=== PATIENT | female | born 1970 | race African-American/Black ===

== ENCOUNTER 2025-10-04 15:02 | Inpatient (IN) ==
[2025-10-04] MEDS ORDERED: KETAMINE HCL ONE ×5 (16:29)
[2025-10-04] MEDS ORDERED: XYLOCAINE 2 % (PLAIN) ONE ×2 (16:29)
[2025-10-04] MEDS ORDERED: ULTANE GAS IN ONE ×3 (16:29)
[2025-10-04] MEDS ORDERED: PRECEDEX INJ VIAL ONE ×4 (16:29)
[2025-10-04] MEDS ORDERED: NovoLIN R (or HumuLIN R) SUBCUT PRN (19:30)
[2025-10-04] MEDS: SNACK - Diabetic Appropriate PO SCH (20:52)
[2025-10-04] MEDS: PROTONIX INJ 40 MG VIAL IVP ONE (21:26)
[2025-10-04] MEDS ORDERED: ZOFRAN INJ 4 MG VIAL IVP PRN (22:13)
[2025-10-04] MEDS ORDERED: VENTOLIN or PROAIR HFA IN SCH (22:15)
[2025-10-04] MEDS: PERCOCET TAB 5/325 MG PO PRN (23:03)
[2025-10-04 23:05] LABS: MEAN PLATELET VOLUME 8.9 fL (7.4-11.0); RED CELL DISTRIBUTION WIDTH 17.2 % (11.6-16.5)
[2025-10-04] MEDS: LR 1,000 ML IV 1,000 ML IV SCH (23:07)
[2025-10-04 23:11] LABS: COR CA(FOR HYPOALB) 9.7 mg/dL (8.5-10.1); COR NA(FOR HYPERGLY) 140.0 mmol/L (136-145); CREATININE 1.28 mg/dL (0.55-1.02); eGFR NON BLACK RACES 46.0 (>60)
--- NOTE | 2025-10-04 23:40 | EKG ---
Test Reason : surgery Blood Pressure : */* mmHG Vent. Rate : 95 BPM Atrial Rate : 95 BPM P-R Int : 156 ms QRS Dur : 86 ms QT Int : 348 ms P-R-T Axes : 65 48 55 degrees QTc Int : 437 ms Normal sinus rhythm Normal ECG No previous ECGs available Confirmed by Alejandro Gee MD ([id number]) on 10/05/2025 7:25:30 AM Referred By: Confirmed By: Alejandro Gee MD
[2025-10-05] MEDS: NovoLIN R (or HumuLIN R) SUBCUT PRN (00:33)
[2025-10-05] MEDS: DILAUDID INJ IVP PRN (00:52)
[2025-10-05] MEDS: HIBICLENS WASH EXT ONE (03:59)
--- NOTE | 2025-10-05 04:58 | RAD ---
PROCEDURE: Chest X-ray 1 View. HISTORY: central line placement; central line placement . TECHNIQUE: AP portable view. COMPARISON: None . TECHNICAL QUALITY: Satisfactory. FINDINGS: Left subclavian central venous line tip projected over the mid superior vena cava 5 cm from the superior cavoatrial junction. Normal-sized heart. Mediastinum and hilar regions show no masses or lymphadenopathy. Normal central vascularity. No pulmonary consolidation, masses, pleural fluid, or pneumothorax. Elevated left hemidiaphragm. No acute bony abnormality. IMPRESSION: 1. Left subclavian central venous line tip mid superior vena cava with the tip 5 cm from the superior cavoatrial junction. 2. No pneumothorax. 3. Elevated left hemidiaphragm. 4. No other evidence of active disease. THIS IS AN ELECTRONICALLY VERIFIED FINAL REPORT 10/05/2025 4:54 AM - Electronically signed by Sanchez Paulino MD
[2025-10-05 05:05] LABS: MEAN PLATELET VOLUME 8.9 fL (7.4-11.0); RED CELL DISTRIBUTION WIDTH 17.4 % (11.6-16.5)
[2025-10-05 05:13] LABS: COR CA(FOR HYPOALB) 9.6 mg/dL (8.5-10.1); COR NA(FOR HYPERGLY) 140 mmol/L (136-145); CREATININE 1.11 mg/dL (0.55-1.02); eGFR NON BLACK RACES 54 (>60)
[2025-10-05] MEDS: PROVENTIL NEB TX 0.083% 2.5MG/ 3ML NEB SCH (06:02)
[2025-10-05] MEDS: HIBICLENS WASH ONE (07:05)
[2025-10-05] MEDS: PROTONIX TAB 40 MG PO SCH ×2 (07:43→08:37)
[2025-10-05] MEDS: CONSULT PHARMACY - POTASSIUM & MAGNESIUM XX SCH (07:43)
[2025-10-05 08:33] LABS: BLOOD/HEMOGLOBIN,URINE NEGATIVE (NEGATIVE); LEUKOCYTE ESTERASE ,URINE 2+ (NEGATIVE); NITRITES,URINE POSITIVE (NEGATIVE)
[2025-10-05] MEDS: COREG TAB 25 MG PO SCH (08:37)
[2025-10-05] MEDS: ASPIRIN EC 81 MG PO SCH (08:38)
[2025-10-05] MEDS: LIPITOR TAB 80 MG PO SCH (08:38)
[2025-10-05 08:39] LABS: APPEARANCE,URINE HAZY (CLEAR)
[2025-10-05] MEDS: ZOLOFT PO SCH (08:39)
[2025-10-05] MEDS: NEURONTIN CAP 100 MG PO SCH (08:39)
[2025-10-05] MEDS: MAG-OX TAB PO SCH (08:39)
[2025-10-05 08:40] LABS: SQUAMOUS EPITHELIAL CELL,UR NEGATIVE /HPF (NEGATIVE)
[2025-10-05] MEDS: NS 500 ML IV 500 ML IV ONE ×2 (08:41→11:49)
--- NOTE | 2025-10-05 08:42 | DR.H&P ---
H&P History & Physical for Day of: H&P Date: 10/04/25 Chief Complaint Chief Complaint: Rest pain both lower extremities with gangrenous changes of both great toesand both small toes History of Present Illness History of Present Illness: This is a 54-year-old female with right hemispheric stroke and left hemiparesis who had changes of ischemia toes of both feet when I saw her originally in July. She is had CT angiogram showing bilateral common iliac artery stenosis noted nto be severe, occluded right tibioperoneal trunk with reconstitution single-vessel runoff via the posterior tibial artery to the right foot and severe left femoral-popliteal disease with patent posterior tibial artery going to the foot left side. We have had trouble getting her approved with her insurance carrier. They finally approved her when she returned to the the office for regular follow-up with worsening of the ischemia and gangrenous changes of the great toe and fifth toe of both feet. Still has ability to stand and pivot and help her caregivers dress her and interact with her. 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 Past Medical History Past Medical History: CVA, Diabetes, GERD and Hypertension Past Surgical History Surgical History: Cholecystectomy and Other Family History Family Medical History: Diabetes Mellitus and Hypertension Social History Does patient currently use any type of tobacco product: No Have you used tobacco products in the last 12 months: No Type of Tobacco Use: Cigarettes How many years tobacco product used: 20 Alcohol Use: None Drug Use: None Medications Home Medications: aspirin 81 mg daily Atorvastatin 80 mg Coreg 25 mg twice daily Plavix 75 mg daily Vitamin D 50,000 units by mouth weekly Famotidine 40 mg daily Ferrous sulfate 325 mg daily Gabapentin 100 mg twice daily Lantus insulin 12 units subcu twice daily Regular insulin as a sliding scale Ipratropium albuterol inhalation every 4 hours Losartan 100 mg daily Percocet 5 mg tablet 1 p.o. every 6 hours. Pain Phenergan as needed Sertraline 50 mg daily Allergies Allergies Allergy/AdvReac Type Severity Reaction Status Date / Time amoxicillin Allergy Verified 10/05/25 00:10 codeine Allergy Verified 10/04/25 19:14 nicardipine Allergy Verified 10/04/25 19:14 ondansetron (From Zofran) Allergy RASH Verified 10/05/25 00:10 Penicillins Allergy Verified 10/04/25 19:14 Labs 10/05/25 04:25 10/05/25 04:25 Review of Systems Constitutional: See HPI Eyes: No Symptoms Reported ENT: No Symptoms Reported Respiratory: No Symptoms Reported Cardiovascular: No Symptoms Reported Gastrointestinal: See HPI (severe reflux ) Genitourinary: Dysuria Musculoskeletal: Other (Left hemiparesis) Skin: No Symptoms Reported Neurological: Other (Left hemiparesis) Physical Exam Vital Signs: Vital Signs Temperature 100.0 F Pulse Rate 92 Pulse Rate 94 Respiratory Rate 18 Blood Pressure 132/66 O2 Sat by Pulse Oximetry 100 O2 Sat by Pulse Oximetry 100 Oriented: Time, Person, Place and Other (Talked with family on her phone all the time) Eyes: Normal Ear: Normal Nose: Normal Throat: Normal Respiratory: Clear Throughout Cardiovascular: Normal and Other (Weakly palpable femoral pulses bilaterally. Absent pulses both ankles. Gangrenous changes of both great toes in both small toes ) : Normal Auscultation: Bowel Sounds: Normal Palpation: Normal Tenderness: Normal Skin: Wound (Gangrenous changes both great toes with open wounds and both small toes open wounds. Questionable ischemia of all the other toes of both feet) Musculoskeletal: Left (Left hemiparesis with contracted left arm and paresis of the left leg) Psychiatric: Depression Mood Description: Apathetic Affect: Depressed and Quiet Speech Pattern: Delayed Assessment/Plan (1) Atherosclerosis of [place] arteries of extremities with rest pain, left leg: Status: Acute Plan: Patient admitted in preop for arterial intervention of the left leg. Most likely will require left transmetatarsal amputation. Will consult podiatry for that (2) Atherosclerosis of [place] arteries of extremities with rest pain, right leg: Status: Acute Plan: After the left leg is done we will need arterial imaging of the right leg and probable right transmetatarsal amputation as well. Will consult podiatry (3) Type 2 diabetes mellitus without complications: Status: Acute Plan: Sliding scale insulin for (4) Essential (primary) hypertension: Status: Acute Plan: Home medications (5) Arterial ischemic stroke, ICA (internal carotid artery), right, chroni: Status: Acute Plan: Stable Home medications (6) Dysphagia following cerebral infarction: Status: Acute Plan: Stable may require EGD in the future (7) Hyperlipidemia, unspecified: Status: Acute Plan: Home medications (8) Stricture of artery: Status: Acute Plan: The left arm is the one that has contracture. Will see if anything is to be done to the subclavian artery stenosis in the future. Review H&P Reviewed: Yes Patient was examined?: Yes
[2025-10-05] MEDS: COZAAR PO SCH (08:51)
--- NOTE | 2025-10-05 10:16 | DR.OPNOTE ---
OP NOTE Pre-Op Diagnosis: Lack of IV access Post-Op Diagnosis: same Procedure Date Date Of Procedure: 10/04/25 Procedure: PROCEDURE: Need for central venous access NARRATIVE: The patient was placed in the Trendelenburg position and the entire left chest prepped and draped in sterile fashion as was the left neck. The skin overlying the left clavicle infiltrated with 1% Xylocaine and a 16-gauge needle used to puncture left subclavian vein with aspiration of blood and placement of a 0.035 inch wire. Incision made over the wire with a #11 knife blade and dilator placed over the guidewire into the left subclavian vein. Dilator removed and the triple-lumen catheter placed over the wire into the vein. Wire removed. All ports aspirated of blood and flushed with heparinized saline. The catheter then secured to the skin with interrupted silk sutures. Post- procedure chest x-ray showed good placement with no pneumothorax. Patient tolerated this well. Type of Anesthesia: Local (1% Xylocaine) Findings: as above Type of Fluids Used:: Lactated Ringers EBL: minimal Complications:: none , chest x-ray showed good placement with no pneumothorax of the central venous cath Disposition/Condition: Pt. tolerated procedure without difficulty.
[2025-10-05] MEDS: VERSED ONE (10:19)
[2025-10-05] MEDS: HEPARIN SODIUM INJ 5000 UNITS ONE ×2 (10:22→12:29)
[2025-10-05] MEDS: FENTANYL VIAL INJ 100 mcg ONE (10:23)
[2025-10-05] MEDS: DIPRIVAN VIAL 20 ML ONE ×4 (10:24→12:57)
[2025-10-05] MEDS: OFIRMEV IV 1000 MG VIAL 1,000 MG/100 ML VIAL IV ONE (10:24)
[2025-10-05] MEDS: ZOFRAN INJ 4 MG VIAL ONE (10:24)
[2025-10-05] MEDS: PEPCID 20 MG VIAL ONE (10:49)
[2025-10-05] MEDS: NS IV PRN (10:50)
[2025-10-05] MEDS: MARCAINE 0.5% ONE ×2 (10:53→11:27)
[2025-10-05] MEDS: PEPCID 20 MG VIAL IVP PRN (10:54)
[2025-10-05] MEDS: NS 100 ML IV 100 ML ONE (10:58)
[2025-10-05] MEDS: ANCEF VIAL 1 GRAM ONE (10:58)
[2025-10-05] MEDS: NS 1,000 ML IV 1,000 ML ONE (10:59)
[2025-10-05] MEDS: ANCEF VIAL 1 GRAM IV PRN (11:05)
[2025-10-05] MEDS: XYLOCAINE 2 % (PLAIN) IVP PRN (11:12)
[2025-10-05] MEDS: PRECEDEX INJ VIAL IVP PRN (11:13)
[2025-10-05] MEDS: KETAMINE HCL IVP PRN (11:13)
[2025-10-05] MEDS: DECADRON INJ ONE (11:15)
[2025-10-05] MEDS: FENTANYL VIAL INJ 100 mcg IVP PRN (11:15)
[2025-10-05] MEDS: VERSED IVP PRN (11:18)
[2025-10-05] MEDS: DECADRON INJ IVP PRN (11:23)
[2025-10-05] MEDS: VISIPAQUE 50 ML ONE (11:27)
[2025-10-05] MEDS: VISIPAQUE 100 ML ONE (11:27)
[2025-10-05] MEDS: HEPARIN 1,000 UNIT/500 ML-NS 3,000 UNIT/1,500 ML IV.SOLN ONE (11:27)
[2025-10-05] MEDS: OFIRMEV IV 1000 MG VIAL 1,000 MG/100 ML VIAL IV PRN (11:35)
[2025-10-05] MEDS: NORMODYNE INJ 20 MG VIAL ONE (11:52)
--- NOTE | 2025-10-05 11:59 | DR.CONSULT ---
CONSULT Consultation for Day of: Date: 10/05/25 Chief Complaint Chief Complaint: rest pain bilateral lower extremities wit gangrenous changes of several digits of both feet Allergies Allergies Allergy/AdvReac Type Severity Reaction Status Date / Time amoxicillin Allergy Verified 10/05/25 00:10 codeine Allergy Verified 10/04/25 19:14 nicardipine Allergy Verified 10/04/25 19:14 ondansetron (From Zofran) Allergy RASH Verified 10/05/25 00:10 Penicillins Allergy Verified 10/04/25 19:14 History of Present Illness History of Present Illness: Patient is a 54 y/o female with a PMHx CVA, Diabetes, GERD and HTN. Patient is a known patient to vascular surgeon Dr. Boo. He contacted our service because patient is undergoing b/l intervention after CT angiogram showing bilateral common iliac artery stenosis noted to be severe, occluded right tibioperoneal trunk with reconstitution single-vessel runoff via the posterior tibial artery to the right foot and severe left femoral-popliteal disease with patent posterior tibial artery going to the foot left side. Patient also has a history of right hemispheric stroke and left hemiparesis who had changes of ischemia toes of both feet when she was seen by Dr. Boo originally in July. According to Dr. Boo's note, patient had trouble obtaining insurance authorization and once approved she appeared for a follow up with worsening of the ischemia and gangrenous changes of the great toe and fifth toe of both feet. Still has ability to stand and pivot and help her caregivers dress her and interact with her. 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 Patient does have history of smoking. Past Medical History Past Medical History: CVA, Diabetes, GERD and Hypertension Past Surgical History Surgical History: Cholecystectomy and Other Family History Family Medical History: Diabetes Mellitus and Hypertension Social History Does patient currently use any type of tobacco product: No Have you used tobacco products in the last 12 months: No Type of Tobacco Use: Cigarettes How many years tobacco product used: 20 Alcohol Use: None Drug Use: None Medications Home Medications: amoxicillin Allergy (Verified 10/05/25 00:10) codeine Allergy (Verified 10/04/25 19:14) nicardipine Allergy (Verified 10/04/25 19:14) ondansetron (From Zofran) Allergy (Verified 10/05/25 00:10) RASH Penicillins Allergy (Verified 10/04/25 19:14) CONTINUE taking the following medications aluminum-mag hydroxide-simethicone 400 mg-400 mg-40 mg/5 mL oral susp (Nery- Lanta) 30 ml PO Q8H PRN 10/04/25 [History] aspirin 81 mg chewable tablet 81 mg PO QDAY 10/04/25 [History] atorvastatin 80 mg tablet 80 mg PO DAILY 10/04/25 [History] carvedilol 25 mg tablet (Coreg) 25 mg PO BID 10/04/25 [History] clopidogrel 75 mg tablet (Plavix) 75 mg PO QDAY 10/04/25 [History] ergocalciferol (vitamin D2) 50,000 unit tablet 50,000 unit PO WEEKLY 10/04/25 [History] famotidine 40 mg tablet 40 mg PO DAILY 10/04/25 [History] ferrous sulfate 325 mg (65 mg iron) tablet,delayed release 325 mg PO DAILY 10/04/25 [History] gabapentin 100 mg capsule 100 mg PO BID 10/04/25 [History] insulin glargine 100 unit/mL (3 mL) subcutaneous pen (Lantus Solostar U-100 Insulin) 12 unit subcut BID 10/04/25 [History] insulin regular human 100 unit/mL injection solution (Humulin R Regular U-100 Insulin) See Rx Instructions .Route .COMPLEX 10/04/25 [History] losartan 100 mg tablet 100 mg PO DAILY 10/04/25 [History] oxycodone-acetaminophen 5 mg-325 mg tablet 1 tab PO Q6H PRN 10/04/25 [History] pantoprazole 40 mg granules delayed-release for susp in packet 40 mg PO DAILY 10/04/25 [History] promethazine 25 mg tablet 25 mg PO Q8H PRN 10/04/25 [History] sennosides 8.6 mg-docusate sodium 50 mg tablet 1 tab PO BID PRN 10/04/25 [History] sertraline 50 mg tablet 50 mg PO DAILY 10/04/25 [History] ipratropium 0.5 mg-albuterol 3 mg (2.5 mg base)/3 mL nebulization soln 3 ml inhalation Q4H PRN rhonchi/adventitious lung sounds 11/25/25 [History] Physical Exam Vital Signs: Vital Signs Temperature 98.3 F Temperature 98.7 F Temperature 98.5 F Pulse Rate 89 Pulse Rate 90 Pulse Rate 92 Pulse Rate 90 Pulse Rate 95 Pulse Rate 94 Pulse Rate 91 Pulse Rate 91 Pulse Rate 92 Pulse Rate 93 Pulse Rate 96 Pulse Rate 94 Pulse Rate 92 Pulse Rate 96 Pulse Rate 88 Pulse Rate 83 Respiratory Rate 16 Respiratory Rate 16 Respiratory Rate 18 Respiratory Rate 18 Blood Pressure 131/63 Blood Pressure 123/68 Blood Pressure 126/60 Blood Pressure 139/65 Blood Pressure 104/58 O2 Sat by Pulse Oximetry 100 O2 Sat by Pulse Oximetry 100 O2 Sat by Pulse Oximetry 97 O2 Sat by Pulse Oximetry 100 O2 Sat by Pulse Oximetry 100 O2 Sat by Pulse Oximetry 100 O2 Sat by Pulse Oximetry 100 O2 Sat by Pulse Oximetry 97 O2 Sat by Pulse Oximetry 98 O2 Sat by Pulse Oximetry 99 O2 Sat by Pulse Oximetry 99 O2 Sat by Pulse Oximetry 100 O2 Sat by Pulse Oximetry 99 O2 Sat by Pulse Oximetry 98 O2 Sat by Pulse Oximetry 100 O2 Sat by Pulse Oximetry 99 DERM: To the right foot: Significant ischemic changes appreciated to the digits 1, 3 and 5 and dusky changes appreciated to 2 and 4. Advanced ischemic changes are appreciated to the digits 1, 3 and 5 in comparison to 2 and 4. To the ischemic digits, bogginess and malodor are noted with purulent drainage. Periwound tisue with erythema, maceration and devitalized tissue is ntoed. Skin is cool to touch, dry and think with no active bleeding. There is a deep full thickness ulceration appreciated to the plantar midfoot that measures 3.2 x 2.8 x 0.4 cm with exposed muscle. To the left foot: Significant ischemic changes appreciated to the digits 1, 3 and 5 and dusky changes appreciated to 2 and 4. Advanced ischemic changes are appreciated to the digits 1, 3 and 5 in comparison to 2 and 4. To the ischemic digits, bogginess and malodor are noted with purulent drainage. Periwound tisue with erythema, maceration and devitalized tissue is ntoed. Skin is cool to touch, dry and think with no active bleeding. VASCULAR: Dorsalis pedis and posterior tibial pulses are non palpable bilateral. CFT is absent bilaterally. Temperature gradient is noted to be cool from mid leg distally. No edema is appreciated. MSK: TO the right: Full-thickness ulcer with exposed muscle at plantar midfoot; underlying soft tissue integrity compromised. No gross deformity aside from collapse of soft tissue envelope around ulceration. Pain on palpation diffusely. To the left: pain on palpation to digits and forefoot due to ischemia. Ambulation: Limited; patient avoids weight bearing due to pain, but has been able to pivot and stand outpatient NEURO: Light touch sensation diminished to digits bilaterally; protective sensation unable to be fully assessed secondary to ischemia and pain. Gross motor function preserved proximally, limited distally due to pain and tissue compromise. Plan (1) Atherosclerosis of [place] arteries of extremities with rest pain, left leg: Status: Acute (2) Atherosclerosis of [place] arteries of extremities with rest pain, right leg: Status: Acute (3) Type 2 diabetes mellitus without complications: Status: Acute (4) Essential (primary) hypertension: Status: Acute (5) Arterial ischemic stroke, ICA (internal carotid artery), right, chroni: Status: Acute (6) Dysphagia following cerebral infarction: Status: Acute (7) Hyperlipidemia, unspecified: Status: Acute (8) Stricture of artery: Status: Acute (9) Gangrene of both feet: Status: Acute Narrative Support Text: - Ordered xrays to evaluate bone and MRI for right foot for nonhealing wound to the midfoot to rule out osteomyelitis and for surgical planning - Plan to perform bilateral TMAs on patient but on separate days- patient will also require a TTT osteotomy after TMAs pending vascular surgery intervention - Will obtain cultures in the OR or antibiotic planning as needed - Patient will be NWB after procedures and will likely need to go to a facility, please plan with case management for discharge - Will order labs for inflammatory markers - Will order A1c for patient - Will await imaging for further recommendations - Will await vascular intervention for any changes in surgical plan - I did discuss this with patient and her aunt who was on the phone- both stated they understood - Betadine and dry sterile dressing can be applied to bilateral feet daily Please contact me with any questions! Dr. Michell Montenegro
[2025-10-05] MEDS: NORMODYNE INJ 20 MG VIAL IVP PRN (12:16)
[2025-10-05] MEDS: HEPARIN SODIUM INJ 5000 UNITS IVP PRN (12:29)
[2025-10-05] MEDS: PROTAMINE SULFATE 50 MG VIAL ONE (13:11)
[2025-10-05] MEDS: PROTAMINE SULFATE 50 MG VIAL IVP PRN (13:13)
--- NOTE | 2025-10-05 13:37 | OR.IMMED ---
IMMEDIATE POST-OP NOTE Immediate Post-Op Note Date of surgery/procedure: 10/05/25 Pre-Op Diagnosis: Critical ischemia of the left leg with tissue loss of the toes Post-Op Diagnosis: Same, see findings Procedure: Aortogram, arteriogram left lower extremity, atherectomy and balloon angioplasty of the left posterior tibial artery, atherectomy and angioplasty of the left anterior tibial artery, intravascular ultrasound of left superficial femoral artery and popliteal artery, balloon angioplasty of the left common femoral artery, stenting of the proximal left common iliac artery Description of Procedure: dictated Surgeon/Pants Closer: Edwardo Boo MD, FACS Findings: Occluded peroneal artery. Occluded proximal takeoff of both the anterior tibial and posterior tibial arteries with diffuse disease of both distal patent left superficial femoral and popliteal artery, near complete occlusion of the takeoff of the left superficial femoral artery, severe stenosis greater than 70% of the left common iliac artery Estimated Blood Loss: 150 cc Complications: None Progress Notes: Patient returned to the ICU. Will give her a diet and plan intervention of the right leg tomorrow. I discussed this with her family by phone.
[2025-10-05] MEDS ORDERED: MAG-OX TAB PO SCH (17:00)
[2025-10-05] MEDS ORDERED: CONSULT PHARMACY - POTASSIUM & MAGNESIUM XX SCH (17:00)
[2025-10-05] MEDS: MAGNESIUM SULFATE 1 GRAM/100 mL PREMIX 1 G/100 ML BAG IV SCH (17:45)
[2025-10-05] MEDS ORDERED: PROTONIX TAB 40 MG PO SCH (20:00)
[2025-10-05] MEDS ORDERED: SNACK - Diabetic Appropriate PO SCH (20:00)
[2025-10-05] MEDS: CIPRO TAB 500 MG PO SCH (20:52)
[2025-10-05] MEDS: DULCOLAX TAB EC 5 MG PO SCH (20:52)
--- NOTE | 2025-10-06 00:04 | DR.OPNOTE ---
OP NOTE Pre-Op Diagnosis: Critical ischemia left leg with tissue loss of left great toe and small toe Post-Op Diagnosis: Same, see findings below Procedure Date Date Of Procedure: 10/05/25 Procedure: PROCEDURE: Diagnostic aortogram, diagnostic arteriogram left leg, atherectomy and balloon angioplasty of the left posterior tibial artery, atherectomy and balloon angioplasty left anterior tibial artery, intravascular ultrasound of the left superficial femoral artery and popliteal artery and left iliac artery, balloon angioplasty of the left common femoral artery, stenting of the proximal left common iliac artery NARRATIVE: The patient was taken to the operative suite and placed in the supine position. The right groin and entire left leg were prepped and draped in sterile fashion. Patient was given intravenous sedation supervised by myself. Timeout for the procedure obtained. Ultrasound used to identify the femoral artery in the right groin and the skin overlying it infiltrated with 0.5% Marcaine. Ultrasound used to guide puncture of the right femoral artery and a 0.012 inch guidewire placed. Incision made over the guidewire at the skin edge with a #11 knife blade and the micro sheath placed over the guidewire into the femoral artery. Small wire exchanged for a 0.035 inch Advantage Glidewire and the micro sheath exchanged for a 5 [place] vascular sheath. Patient given 5000 units of intravenous heparin. Omni catheter placed over the guidewire into the aorta and power injector used to perform aortogram showing small aorta with high bifurcation and severe stenosis both common iliac arteries . The Omni catheter was then used to direct the guidewire down the left common iliac artery to the distal left external iliac artery. The Omni catheter exchanged for a [place] catheter and sequential arteriograms performed of the left leg showing patenr left superficial femoral artery ,patent left popliteal artery, patent left tibial peroneal trunk, occluded left peroneal artery , occluded proximal left posterior tibial artery with reconstitution distally, occluded proximal left anterior tibial artery with reconstitutJon distally .The [place] catheter removed and over the guidewire the 5 [place]zeri sheath was exchanged for a 7 Azeri Catpult Sheath which was placed over the bifurcation down the left side to the left external iliac artery using a 4mm ballon to help get across the high bifurcation by inflating and deflating the baloon and advancing the Catapult sheath . One[place]ama catheter and the 0.035 guidewire used to traverse the arteries of the left leg ultimately ending in left posterior tibial artery . This was selective catherization. Onekama catheter used to exchanged 0.035 inch wire for a 0.014 inch Thruway wire,. Over this wire we placed the jetstream 1.6 mm atherectomy device and performed atherectomy of the proximal left posterior tibial artery and then balloon dilated the entire left posterior tibial artery using a [employer] Pascual 2.5 mm x 220 mm balloon. This wire was completely backed up and the wire and Onekama catheter used to traverse the anterior tibial artery all the way to the ankle. Selective catheterization. Over this wire we placed the atherectomy device and performed atherectomy of the proximal anterior tibial artery then balloon dilated the entire left anterior tibial artery using the same Pascual 2.5 mm x 220 mm balloon. Post procedure arteriogram showed excellent result .This device removed and over the wire we placed the [place] intravascular ultrasound device and performed ultrasound of the entire left popliteal and superficial femoral arteries as CT angiogram has shown significant disease. There was no significant disease of the left popliteal or left superficial femoral arteries however there was significant disease at the takeoff of the superficial femoral artery where it exited the common femoral artery of approximatelly 70% by ultrasound. There was also approximately 70% stenosis of the proximal left common iliac artery at the bifurcation. Over the wire we placed a [employer] Burt 6 mm x 60 mm drug coated balloon across the takeoff of the superficial femoral artery and the junction of the left common femoral artery and balloon dilated this for 3 minutes. This removed and then we placed over the wire a [employer] [employer] 8 mm x 37 mm stent, balloon expandable and expanded it in the proximal left common iliac artery. Post procedure arteriogram showed excellent flow through both of these areas now. Wires and devices removed from the Catapult sheath. This sheath pulled back into the aorta and a 0.035 guidewire placed. Catapult sheath exchanged over the wire for a Angio-Seal device used to close the puncture of the right femoral artery. Patient taken to same-day surgery in good condition. Type of Anesthesia: Local (0.5% Marcaine) Anesthesia Comment: Plus MAC Findings: Severe disease of the left common iliac artery, severe disease right common iliac artery, occluded left peroneal artery. Occluded proximal left posterior tibial artery, occluded proximal left anterior tibial artery, severe disease greater than 70% of the left common femoral artery, severe disease greater than 70% of the proximal left common iliac artery Type of Fluids Used:: Lactated Ringers Total Amount of Fluid Infused:: 650cc Urine output: 400cc EBL: 150cc Hardware: 80 mm x 37 mm [employer] [employer] iliac stent placed left common iliac artery Complications:: none Needle/Sponge Count:: correct Disposition/Condition: Pt. tolerated procedure without difficulty. Taken to CCU in stable condition.
[2025-10-06 05:32] LABS: MEAN PLATELET VOLUME 8.9 fL (7.4-11.0)
[2025-10-06 05:41] LABS: COR NA(FOR HYPERGLY) 137 mmol/L (136-145); CREATININE 1.00 mg/dL (0.55-1.02); eGFR NON BLACK RACES > 60 (>60)
[2025-10-06 06:29] LABS: RED CELL DISTRIBUTION WIDTH 16.4 % (11.6-16.5)
[2025-10-06 06:33] LABS: ERYTHROCYTE SEDIMENTATION RATE 53 MM/HOUR (0-20)
[2025-10-06 06:59] LABS: PLATELET MORPHOLOGY COMMENT NORMAL (NORMAL)
[2025-10-06] MEDS ORDERED: MULTIHANCE INJ VIAL ONE (10:34)
[2025-10-06] MEDS: OFIRMEV IV 1000 MG VIAL 1,000 MG/100 ML VIAL IV ONE (11:45)
[2025-10-06] MEDS: XYLOCAINE 2 % (PLAIN) ONE (11:45)
[2025-10-06] MEDS: DIPRIVAN VIAL 20 ML ONE ×2 (11:45→13:31)
[2025-10-06] MEDS: PRECEDEX INJ VIAL ONE (11:45)
[2025-10-06] MEDS: FENTANYL VIAL INJ 100 mcg ONE (11:46)
[2025-10-06] MEDS: HEPARIN SODIUM INJ 5000 UNITS ONE (11:46)
[2025-10-06] MEDS: VERSED ONE (11:46)
[2025-10-06] MEDS: PEPCID 20 MG VIAL ONE (12:07)
[2025-10-06] MEDS: MULTIHANCE INJ VIAL IVP NR (12:15)
[2025-10-06] MEDS: ANCEF VIAL 1 GRAM ONE (12:33)
[2025-10-06] MEDS: NS 1,000 ML IV 1,000 ML ONE (12:35)
[2025-10-06] MEDS: NS 100 ML IV 100 ML ONE (12:36)
[2025-10-06] MEDS: PEPCID 20 MG VIAL IVP PRN (12:38)
[2025-10-06] MEDS: NS 1,000 ML IV 400 ML IV PRN (12:38)
[2025-10-06] MEDS: ANCEF VIAL 1 GRAM IV PRN (12:40)
[2025-10-06] MEDS: KETAMINE HCL IVP PRN (12:46)
[2025-10-06] MEDS: XYLOCAINE 2 % (PLAIN) IVP PRN (12:46)
[2025-10-06] MEDS: DIPRIVAN VIAL 240 ML IVP PRN (12:46)
[2025-10-06] MEDS: PRECEDEX INJ VIAL IVP PRN (12:46)
[2025-10-06] MEDS: VISIPAQUE 100 ML ONE (13:03)
[2025-10-06] MEDS: HEPARIN 1,000 UNIT/500 ML-NS 3,000 UNIT/1,500 ML IV.SOLN ONE (13:03)
[2025-10-06] MEDS: VISIPAQUE 50 ML ONE (13:03)
[2025-10-06] MEDS: MARCAINE 0.5% ONE (13:03)
[2025-10-06] MEDS: NS 500 ML IV 500 ML IV ONE (13:03)
[2025-10-06] MEDS: VERSED IVP PRN (13:03)
[2025-10-06] MEDS: HEPARIN SODIUM INJ 5000 UNITS IVP PRN (13:04)
[2025-10-06] MEDS: OFIRMEV IV 1000 MG VIAL 1,000 MG/100 ML VIAL IV PRN (13:05)
[2025-10-06] MEDS: FENTANYL VIAL INJ 100 mcg IVP PRN (13:40)
--- NOTE | 2025-10-06 14:09 | OR.IMMED ---
IMMEDIATE POST-OP NOTE Immediate Post-Op Note Date of surgery/procedure: 10/06/25 Pre-Op Diagnosis: Critical ischemia right leg with tissue loss right great toe and small toe Post-Op Diagnosis: Same, see findings Procedure: Aortogram, arteriogram of right lower extremity, Surgeon/Wood Cutter: KERRY BECK MD FACS Findings: Deformed stent in the common right iliac artery but not obstructing. Multiple stents in right superficial artery with good runoff all the way to the trifurcation with occluded trifurcation vessels all 3 to the RIGHT FOOT . Estimated Blood Loss: 100CC Complications: NONE Progress Notes: Return to CCU. Patient for bilateral transmetatarsal amputation to be done sequentially next week. Continue IV antibiotics
[2025-10-06] MEDS: LOVENOX INJ 40 MG SYR SC SCH (15:34)
--- NOTE | 2025-10-06 22:54 | DR.OPNOTE ---
OP NOTE Pre-Op Diagnosis: Critical ischemia right leg with tissue loss to the right toes #1 &5 Post-Op Diagnosis: Same, see findings Procedure Date Date Of Procedure: 10/06/25 Procedure: PROCEDURE: Diagnostic aortogram, diagnostic arteriogram right leg, NARRATIVE: The patient was taken to the operative suite and placed in the supine position. The left groin and entire right leg were prepped and draped in sterile fashion. Patient was given intravenous sedation supervised by myself. Timeout for the procedure obtained. Ultrasound used to identify the femoral artery in the left groin and the skin overlying it infiltrated with 0.5% Marcaine. Ultrasound used to guide puncture of the left femoral artery and a 0.012 inch guidewire placed. Incision made over the guidewire at the skin edge with a #11 knife blade and the micro sheath placed over the guidewire into the femoral artery. Small wire exchanged for a 0.035 inch a Advantage Glidewire and the micro sheath exchanged for a 5 [place] vascular sheath. Patient given 5000 units of intravenous heparin. Omni catheter placed over the guidewire into the aorta and power injector used to perform aortogram showing patent aorta and patent left iliac artery placede yesterday and patent right common iliac artery with deformed stent which was not seen before. The Omni catheter or was placed at the takeoff of the right iliac artery and from here arteriograms. Of the right leg showing patent right superficial femoral artery and popliteal artery with stents in place. All trifurcation vessels are occluded with no significant reconstitution at the ankle. There is nothing that could be intervened upon to help in the situation. Wires and devices removed from the Catapult sheath. Catapult sheath exchanged over the wire for a Angio-Seal device used to close the puncture of the left femoral artery. Patient taken to same-day surgery in good condition. Type of Anesthesia: Local (0.5% Marcaine) Anesthesia Comment: Plus MAC Findings: Evidence of possible deformity of stent in the right common iliac artery which had not previously been seen noted on CT angiogram by radiologist not obstructing. Patent right superficial femoral artery with patent stents. Occlusion of all trifurcation vessels no significant reconstitution at the ankle Type of Fluids Used:: Lactated Ringers Total Amount of Fluid Infused:: 400cc Urine output: 500 cc EBL: 100 cc Complications:: none Needle/Sponge Count:: correct Disposition/Condition: Pt. tolerated procedure without difficulty. Taken to CCU in stable condition.
[2025-10-07 05:11] LABS: MEAN PLATELET VOLUME 8.9 fL (7.4-11.0); RED CELL DISTRIBUTION WIDTH 16.5 % (11.6-16.5)
[2025-10-07 05:22] LABS: COR CA(FOR HYPOALB) 9.7 mg/dL (8.5-10.1); COR NA(FOR HYPERGLY) 140 mmol/L (136-145); CREATININE 0.85 mg/dL (0.55-1.02); eGFR NON BLACK RACES > 60 (>60)
[2025-10-07] MEDS: MAALOX or MYLANTA PO PRN (13:12)
--- NOTE | 2025-10-07 16:19 | NOTE.SOAP ---
Soap Note Note for Day of Date of Exam: 10/07/25 Subjective Data Subjective Data: Patient now has had arterial invention of the left leg and arteriogram of the right leg. There was really nothing I could do the right leg. Both legs are warm. She has the wounds to the great small toes bilaterally and podiatry is planning intervention next week. She does complain of pain of her feet. She otherwise has been stable. Objective Data Temperature: 98.9 F Pulse Rate: 78 Respiratory Rate: 13 Blood Pressure: 139/63 O2 Sat by Pulse Oximetry: 100 Objective Data: Needlesticks both groin healing well. Both feet warm. Still with evidence of tissue loss of the great and small toes bilaterally. Hgb=7.8, Cr=0.85, WBC=6.7 Assessment Assessment: Significant peripheral vascular disease bilaterally has had left leg intervention which went well. Right leg shows nothing that I can really make better on that side. Patient is planned for possible bilateral transmetatarsal amputations and bilateral TTT procedures of both ankles to help with healing. Details of that as per podiatry service. Will continue IV antibiotics. Plan Plan: as above. Continue IV antibiotics
[2025-10-08] MEDS: PEPCID TAB 20 MG PO PRN (03:09)
[2025-10-08 06:23] LABS: MEAN PLATELET VOLUME 9.1 fL (7.4-11.0); RED CELL DISTRIBUTION WIDTH 16.7 % (11.6-16.5)
[2025-10-08 06:32] LABS: COR CA(FOR HYPOALB) 9.8 mg/dL (8.5-10.1); CREATININE 0.82 mg/dL (0.55-1.02); eGFR NON BLACK RACES > 60 (>60)
--- NOTE | 2025-10-08 11:26 | NOTE.SOAP ---
Soap Note Note for Day of Date of Exam: 10/08/25 Subjective Data Subjective Data: Patient transferred to the floor. Doing well. Wounds of both feet are stable. Both feet warm after intervention with good Doppler signals on the left and adequate Doppler signals on the right. Objective Data Temperature: 98.1 F Pulse Rate: 85 Respiratory Rate: 17 Blood Pressure: 159/79 O2 Sat by Pulse Oximetry: 96 Objective Data: Fee described above. Hemoglobin risen to 8.3, white blood cell count 7500, creatinine equals 0.8 urine culture growing E. coli which is ESBL, will change Cipro to Invanz 1 g every 24 IV Assessment Assessment: Critical ischemia of both legs status post arterial invention. Doing well. Still concerned about the right foot overall. UTI with ESBL, E. coli Plan Plan: Continue current wound care. Change antibiotics to Invanz 1 g IV every 24 hours. Podiatry is planning intervention of both feet next week.
[2025-10-08] MEDS: INVanz INJ 1 GRAM VIAL 1 G in NS 100 ML IV 100 ML IV SCH (11:59)
--- NOTE | 2025-10-08 13:52 | MD.NOTE ---
Provider Note Note Note: S: Patient is resting comfortably O: DERM: To the right foot: Significant ischemic changes appreciated to the digits 1, 3 and 5 and dusky changes appreciated to 2 and 4. Advanced ischemic changes are appreciated to the digits 1, 3 and 5 in comparison to 2 and 4. To the ischemic digits, bogginess and malodor are noted. Purulent drainage is not encountered at this time. Periwound tissue with erythema, maceration and devitalized tissue is ntoed. Skin is cool to touch, dry and think with no active bleeding. To the left foot: Significant ischemic changes appreciated to the digits 1, 3 and 5 and dusky changes appreciated to 2, 3 and 4. Advanced ischemic changes are appreciated to the digits 1 and 5 in comparison to 2 and 4. To the ischemic digits, bogginess and malodor are noted with purulent drainage. Periwound tisue with erythema, maceration and devitalized tissue is ntoed. Skin is cool to touch, dry and think with no active bleeding.There is a deep full thickness ulceration appreciated to the plantar midfoot that measures 3.2 x 2.8 x 0.4 cm with exposed muscle. A:Gangrene, bilateral feet; PAD P: - Will take patient to OR on Thursday 10/11 for right foot TMA, plan for OR 10/13 for left TMA and TTT of right, plan for OR on 10/15 for left TTT - Patient will need to be NPO at midnight on Saturday - Patient will be NWB after procedures, will need to go to a facility vs home - Please continue to keep patient comfortable - Betadine and dry sterile can be applied to bilateral feet at this time Please contact me with any questions! Dr. Michell Montenegro
[2025-10-08] MEDS ORDERED: BETADINE SOLN ONE (15:28)
--- NOTE | 2025-10-09 13:02 | NOTE.SOAP ---
Soap Note Note for Day of Date of Exam: 10/09/25 Subjective Data Subjective Data: Patient stable after bilateral lower extreme arterial interventions. Has necrosis of the small and great toes bilaterally and planned bilateral transmetatarsal amputations next week with possible osteotomies as well. Patient being treated for ESBL E. coli and changed to Invanz. Patient afebrile. Objective Data Temperature: 98.3 F Pulse Rate: 84 Respiratory Rate: 18 Blood Pressure: 156/74 O2 Sat by Pulse Oximetry: 97 Objective Data: Feet are warm bilaterally. Toes of the same. Needlesticks and groins are healed hemoglobin is 8.3, white blood cell count 7005 Assessment Assessment: Significant ischemia both lower extremities with necrosis of toes bilaterally. Urinary tract infection with ESBL Plan Plan: Will discontinue Santoro catheter continue IV Invanz. Await podiatry intervention next week.
[2025-10-09] MEDS: DIFLUCAN PO SCH (15:14)
[2025-10-10] MEDS ORDERED: PROVENTIL NEB TX 0.083% 2.5MG/ 3ML NEB PRN (00:29)
[2025-10-10 06:21] LABS: MEAN PLATELET VOLUME 9.2 fL (7.4-11.0); RED CELL DISTRIBUTION WIDTH 17.0 % (11.6-16.5)
[2025-10-10 06:36] LABS: COR CA(FOR HYPOALB) 10.0 mg/dL (8.5-10.1); COR NA(FOR HYPERGLY) 141 mmol/L (136-145); CREATININE 0.81 mg/dL (0.55-1.02); eGFR NON BLACK RACES > 60 (>60)
[2025-10-10] MEDS ORDERED: HIBICLENS WASH ONE (19:26)
--- NOTE | 2025-10-10 19:47 | NOTE.SOAP ---
Soap Note Note for Day of Date of Exam: 10/10/25 Subjective Data Subjective Data: Both feet stable and warm after arterial inventions, see previous notes. Objective Data Temperature: 97.8 F Pulse Rate: 78 Respiratory Rate: 16 Blood Pressure: 118/56 O2 Sat by Pulse Oximetry: 84 Objective Data: Both feet are warm. Still with gangrenous changes of the small toe and great toe bilaterally Assessment Assessment: Critical ischemia both legs status post arterial intervention Plan Plan: Podiatry service is planning bilateral transmetatarsal amputations this week and possible TTT procedures as well.
[2025-10-10] MEDS: HIBICLENS WASH EXT ONE (20:36)
[2025-10-11 05:37] LABS: MEAN PLATELET VOLUME 8.9 fL (7.4-11.0); RED CELL DISTRIBUTION WIDTH 16.7 % (11.6-16.5)
[2025-10-11 05:46] LABS: COR CA(FOR HYPOALB) 9.9 mg/dL (8.5-10.1); COR NA(FOR HYPERGLY) 138 mmol/L (136-145); CREATININE 0.86 mg/dL (0.55-1.02); eGFR NON BLACK RACES > 60 (>60)
[2025-10-11] MEDS: XYLOCAINE 1% and EPINEPHRINE 1:100,000 ONE (07:01)
[2025-10-11] MEDS: PEPCID 20 MG VIAL ONE (07:09)
[2025-10-11] MEDS: DIPRIVAN VIAL 20 ML ONE (07:17)
[2025-10-11] MEDS: VERSED ONE (07:17)
[2025-10-11] MEDS: FENTANYL VIAL INJ 100 mcg ONE (07:17)
[2025-10-11] MEDS: OFIRMEV IV 1000 MG VIAL 1,000 MG/100 ML VIAL IV ONE (07:17)
[2025-10-11] MEDS: NS 100 ML IV 100 ML ONE (07:28)
[2025-10-11] MEDS: ANCEF VIAL 1 GRAM ONE (07:28)
[2025-10-11] MEDS: NS 1,000 ML IV 1,000 ML ONE (07:29)
[2025-10-11] MEDS: NS 1,000 ML IV 400 ML IV PRN (07:33)
[2025-10-11] MEDS: PEPCID 20 MG VIAL IVP PRN (07:33)
[2025-10-11] MEDS: ANCEF VIAL 1 GRAM IV PRN (07:34)
[2025-10-11] MEDS: BETADINE SOLN ONE (07:34)
[2025-10-11] MEDS: MARCAINE 0.5% ONE (07:34)
[2025-10-11] MEDS: VERSED IVP PRN (07:38)
[2025-10-11] MEDS: KETAMINE HCL IV PRN (07:43)
[2025-10-11] MEDS: DIPRIVAN VIAL 200 ML IVP PRN (07:47)
[2025-10-11] MEDS: TORADOL 30 MG VIAL IVP PRN (07:50)
[2025-10-11] MEDS: NEO-SYNEPHRINE INJ ONE (07:57)
--- NOTE | 2025-10-11 08:02 | MRI ---
EXAM: MRI LEFT FOOT WITHOUT AND WITH IV CONTRAST HISTORY: left foot osteo CONTRAST-MULTIHANCE 20CC PICC LINE (HAND INJECTION) ; COMPARISON: None available TECHNIQUE: Multi planar series were obtained without and with IV contrast. FINDINGS: Multiple motion degraded series. Distal 1st toe cutaneous/subcutaneous ulcer extends to the 1st distal phalanx. Moderate surrounding soft tissue edema with mild enhancement. No fluid collection or evidence of abscess. Moderate 1st distal phalanx marrow edema and enhancement with cortical destruction and loss of T1 marrow fat signal. No significant joint effusion. Nondisplaced lateral calcaneus fracture with focal marrow edema and enhancement. Mild hindfoot and midfoot osteoarthritis. IMPRESSION: 1. 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 No evidence of abscess. 2. Nondisplaced posterolateral calcaneus fracture. THIS IS AN ELECTRONICALLY VERIFIED FINAL REPORT 10/11/2025 7:51 AM - Electronically signed by Luis Bates MD
[2025-10-11] MEDS ORDERED: BENADRYL INJ 50 MG VIAL IVP PRN (08:04)
[2025-10-11] MEDS ORDERED: DILAUDID INJ IVP PRN (08:04)
[2025-10-11] MEDS ORDERED: BARHEMSYS INJ IVP PRN (08:04)
[2025-10-11] MEDS: FENTANYL VIAL INJ 100 mcg IVP PRN (08:05)
[2025-10-11] MEDS: OFIRMEV IV 1000 MG VIAL 1,000 MG/100 ML VIAL IV PRN (08:05)
[2025-10-11] MEDS: PRECEDEX INJ VIAL IVP PRN (08:05)
[2025-10-11] MEDS: NEO-SYNEPHRINE INJ IVP PRN (08:23)
--- NOTE | 2025-10-11 09:00 | DR.OPNOTE ---
OP NOTE Pre-Op Diagnosis: dry gangrene, right foot Post-Op Diagnosis: dry gangrene, right foot Procedure Date Date Of Procedure: 10/11/25 Procedure: 1. transmetatarsal amputation, right foot 2. Intraoperative fluoroscopy, right foot Type of Anesthesia: General Anesthetic w/mask Findings: SURGEON: Michell Montenegro D.P.M. FAMILY SERVICE AIDE: none ANESTHESIA: LMA with local. HEMOSTASIS: Anatomical dissection. ESTIMATED BLOOD LOSS: 1 mL. MATERIALS: 3-0 Monocryl and 3-0 nylon INDICATIONS: This is a 54-year-old female patient who presents with significant peripheral vascular disease and gangrene of infection of the right foot and left foot. The patient underwent vascular intervention last week and it was deemed unsuccessful. The vascular surgeon, Dr. Boo contacted us for intervention and possible TTT osteotomies prior to a more proximal amputation. The patient has gangrene of digits 1, 3 and 5 of the right foot and duskiness of the right 2nd and 4th digits, she presents for a TMA. The patient, due to the extent of the peripheral vascular disease, will likely need to return to the O.R. at a later date for a Transverse Tibial Transport osteotomy of bilateral lower extremities and a transmetatarsal amputation of the left foot. DESCRIPTION OF PROCEDURE: The patient presented to the pre-operative holding area having been NPO since midnight. History and physical and all preoperative studies were reviewed and there were no contraindications to the proposed procedure. The patient confirmed the procedure to be performed. The risks and benefits of the procedure were agai n discussed with the patient prior to the procedure and the patient verbalized understanding. The right operative site was then marked. Under mild sedation, the patient was transferred from the preoperative area to the operating room, placed on the operating table in a supine position. Anesthesia was administered by the anesthesia team as indicated above. The appropriate anesthetics were administered and supplemented with a total of 10 ccs of 1:1 mixture of 0.5% Marcaine in an ankle block fashion to the right foot. The right lower extremity was then prepped and draped in the usual sterile fashion. A timeout was performed to verify the correct patient, procedure, and extremities. A fish-mouth incision was marked at the level of the mid-metatarsal shafts, ensuring equal dorsal and plantar flap lengths with a slight plantar bias to facilitate robust soft-tissue coverage. Utilizing a #15 blade, a curved dorsal incision was made from medial to lateral in a gentle arc. A matching curved plantar incision was then created, mirroring the dorsal curve to complete the fish-mouth configuration.The result created two opposing semicircular flaps with excellent vascular potential. Sharp dissection was carried through the subcutaneous tissue along both flaps. Nonviable tissue was resected until healthy bleeding tissue was encountered.Deep dissection continued to expose all five metatarsal shafts.Dorsal and plantar neurovascular structures were identified and ligated/cauterized as appropriate. All devitalized fascia, tendon, or subcutaneous tissue was excised. Next, each metatarsal was exposed circumferentially. A sagittal saw was used to perform the transmetatarsal osteotomies in a slightly beveled or parabola-shaped pattern from medial to lateral, preventing future pressure points and improving stump contour. The forefoot and osteotomy sites were then removed from the surgical site in toto. The surgical site was then irrigated with Prontosan. A deep wound culture was then obtained. At this time, the plantar flap was rotated and approximated to the dorsal flap in a tension-free fashion. Deep closure was achieved with 3-0 Monocryl and Skin was reapproximated utilizing 3-0 Nylon in interrupted suture type fashion. Post-operative dressings included Xeroform, sterile gauze, ABD pads, Kerlix, and a light BARAK wrap. The patient tolerated the procedure well without complications. It should be noted that a tourniquet was not used for this procedure and bleeding was minimal and concerning for healing. Patient will likely require a transverse tibial transport osteotomy vs BKA depending on clinical progression and concerns for peripheral vascular disease. Patient will return to the OR on for a TTT osteotomy of the right and will undergo a left TMA. Preoperative and postoperative images were performed and interpreted by me as there was no radiologist present or available in the room. Dr. Michell Montenegro Specimen/Pathology: wound culture EBL: 1 cc Drains/Tubes Placed: None Hardware: none Cultures: wound culture Complications:: none Disposition/Condition: Pt. tolerated procedure without difficulty. Extubated in the OR and taken to PACU in stable condition.
[2025-10-11] MEDS ORDERED: NS 250 ML IV 250 ML IV ONE (09:16)
[2025-10-11] MEDS: NS 250 ML IV 25 ML IV PRN (09:32)
--- NOTE | 2025-10-11 14:23 | NOTE.SOAP ---
Soap Note Note for Day of Date of Exam: 10/11/25 Subjective Data Subjective Data: Status post right transmetatarsal amputation by podiatry service today. Patient otherwise stable. Surgeons noted that did not bleed very well. Planning TTT to the right foot on Saturday and left transmetatarsal amputation at that time. Objective Data Temperature: 98 F Pulse Rate: 72 Respiratory Rate: 18 Blood Pressure: 109/58 O2 Sat by Pulse Oximetry: 98 Objective Data: Right foot with dressing in place. Left great toe and small toe with gangrenous changes. Patient also with UTI with ESBL Assessment Assessment: Continue IV antibiotics to treat urinary tract infection. Plan TTT of the right foot on Saturday and transmetatarsal potation of left foot on Saturday as well. Plan Plan: As above
[2025-10-11] MEDS: BETADINE SOLN TOP PRN (16:04)
[2025-10-12] MEDS: PHENERGAN INJ 25 MG IM PRN (02:53)
[2025-10-12 05:46] LABS: MEAN PLATELET VOLUME 9.1 fL (7.4-11.0); RED CELL DISTRIBUTION WIDTH 16.6 % (11.6-16.5)
[2025-10-12 05:59] LABS: COR CA(FOR HYPOALB) 9.5 mg/dL (8.5-10.1); COR NA(FOR HYPERGLY) 143 mmol/L (136-145); CREATININE 0.86 mg/dL (0.55-1.02); eGFR NON BLACK RACES > 60 (>60)
[2025-10-12] MEDS: VANCOMYCIN IV *PREMIX 1.25 G/250 ML BAG 1.25 G/250 ML PIGGYBACK IV SCH (11:39)
[2025-10-12] MEDS ORDERED: MILK OF MAGNESIA PO PRN (11:49)
--- NOTE | 2025-10-12 17:54 | NOTE.SOAP ---
Soap Note Note for Day of Date of Exam: 10/12/25 Subjective Data Subjective Data: Patient doing well after bilateral arterial intervention and right transmetatarsal amputation. Right leg blood supply still suspect. Planning TTT procedure by podiatry tomorrow the right leg and left transmetatarsal amputation. Objective Data Temperature: 98.1 F Pulse Rate: 79 Respiratory Rate: 19 Blood Pressure: 139/63 O2 Sat by Pulse Oximetry: 97 Objective Data: As above. Both feet warm.Hgb=7.1 Assessment Assessment: Bilateral critical ischemia status post bilateral arterial inventions left leg went well. Right leg is still suspect I had nothing I can fix below the knee Plan Plan: Plan TTT by podiatry of the right leg tomorrow as well as left transmetatarsal amputation.
[2025-10-12] MEDS: DILAUDID INJ IVP PRN (20:55)
[2025-10-12] MEDS: LANTUS SC SCH (20:56)
[2025-10-12] MEDS ORDERED: COLACE CAP 100 MG PO SCH (21:00)
[2025-10-13] MEDS: HIBICLENS WASH EXT ONE (05:43)
[2025-10-13 06:14] LABS: MEAN PLATELET VOLUME 9.0 fL (7.4-11.0); RED CELL DISTRIBUTION WIDTH 18.0 % (11.6-16.5)
[2025-10-13 06:26] LABS: COR CA(FOR HYPOALB) 9.6 mg/dL (8.5-10.1); COR NA(FOR HYPERGLY) 145 mmol/L (136-145); CREATININE 0.87 mg/dL (0.55-1.02); eGFR NON BLACK RACES > 60 (>60)
[2025-10-13] MEDS: BRIDION ONE ×2 (10:49→11:54)
[2025-10-13] MEDS: DIPRIVAN VIAL 20 ML ONE (10:49)
[2025-10-13] MEDS: OFIRMEV IV 1000 MG VIAL 1,000 MG/100 ML VIAL IV ONE (10:50)
[2025-10-13] MEDS: XYLOCAINE 2 % (PLAIN) ONE ×2 (10:50→13:15)
[2025-10-13] MEDS: ZEMURON 100 MG VIAL ONE (10:50)
[2025-10-13] MEDS: TORADOL 30 MG VIAL ONE (10:50)
[2025-10-13] MEDS: VERSED ONE ×2 (10:53→11:20)
[2025-10-13] MEDS: FENTANYL VIAL INJ 100 mcg ONE ×2 (10:57→11:20)
[2025-10-13] MEDS: PEPCID 20 MG VIAL ONE (10:58)
[2025-10-13] MEDS: DECADRON INJ ONE (11:53)
[2025-10-13] MEDS: ROBINUL ONE (11:56)
[2025-10-13] MEDS ORDERED: DILAUDID INJ IVP PRN (11:57)
[2025-10-13] MEDS ORDERED: BENADRYL INJ 50 MG VIAL IVP PRN (11:57)
[2025-10-13] MEDS: NS 1,000 ML IV 600 ML IV PRN (12:19)
[2025-10-13] MEDS: PEPCID 20 MG VIAL IVP PRN (12:20)
[2025-10-13] MEDS: ANCEF VIAL 1 GRAM ONE (12:21)
[2025-10-13] MEDS: NS 1,000 ML IV 1,000 ML ONE (12:22)
[2025-10-13] MEDS: NS 100 ML IV 100 ML ONE (12:22)
[2025-10-13] MEDS: VERSED IVP PRN (13:00)
[2025-10-13] MEDS: ANCEF VIAL 1 GRAM IV PRN (13:02)
[2025-10-13] MEDS: KETAMINE HCL IV PRN (13:09)
[2025-10-13] MEDS: FENTANYL VIAL INJ 100 mcg IVP PRN (13:09)
[2025-10-13] MEDS: XYLOCAINE 2 % (PLAIN) IVP PRN (13:10)
[2025-10-13] MEDS: ZEMURON 100 MG VIAL IVP PRN (13:11)
[2025-10-13] MEDS: MARCAINE 0.5% ONE (13:15)
[2025-10-13] MEDS: DECADRON INJ IVP PRN (13:22)
[2025-10-13] MEDS: OFIRMEV IV 1000 MG VIAL 1,000 MG/100 ML VIAL IV PRN (13:25)
[2025-10-13] MEDS: EPHEDRINE SULFATE INJ ONE ×2 (13:55)
[2025-10-13] MEDS: EPHEDRINE SULFATE INJ IVP PRN (13:57)
[2025-10-13] MEDS: DIPRIVAN VIAL 200 ML IVP PRN (14:18)
[2025-10-13] MEDS: NORMODYNE INJ 20 MG VIAL ONE (14:32)
[2025-10-13] MEDS: DILAUDID INJ ONE (14:38)
[2025-10-13] MEDS: NORMODYNE INJ 20 MG VIAL IVP PRN (14:40)
[2025-10-13] MEDS: APRESOLINE INJ 20 MG VIAL ONE (14:43)
[2025-10-13] MEDS: PRECEDEX INJ VIAL IVP PRN (14:47)
[2025-10-13] MEDS: BRIDION IVP PRN (15:10)
[2025-10-13] MEDS: ROBINUL IVP PRN (15:11)
[2025-10-13] MEDS: TORADOL 30 MG VIAL IVP PRN (15:12)
[2025-10-13] MEDS: APRESOLINE INJ 20 MG VIAL IVP PRN (15:17)
[2025-10-13] MEDS: DILAUDID INJ IVP PRN (15:19)
--- NOTE | 2025-10-13 20:08 | NOTE.SOAP ---
Soap Note Note for Day of Date of Exam: 10/13/25 Subjective Data Subjective Data: Has already had transmetatarsal amputation of the right foot. Left transmetatarsal amputation performed today as well as TTT of right foot Objective Data Temperature: 99.1 F Pulse Rate: 83 Respiratory Rate: 20 Blood Pressure: 149/71 O2 Sat by Pulse Oximetry: 100 Objective Data: Patient resting comfortably. Dressings both feet with no drainage. Hemoglobin was 9.8 today. White blood cell count 7004 Assessment Assessment: Hemic changes bilateral fourth foot after arterial intervention both leg, continues on IV antibiotics for ESBL urinary tract infection Plan Plan: Plan left TTT on Saturday, continue IV antibiotics
[2025-10-13 21:01] LABS: CREATININE 0.79 mg/dL (0.55-1.02)
[2025-10-14 05:47] LABS: COR NA(FOR HYPERGLY) 144 mmol/L (136-145); CREATININE 0.87 mg/dL (0.55-1.02); MEAN PLATELET VOLUME 9.2 fL (7.4-11.0); RED CELL DISTRIBUTION WIDTH 17.9 % (11.6-16.5); eGFR NON BLACK RACES > 60 (>60)
[2025-10-14] MEDS: PERCOCET TAB 5/325 MG PO PRN (09:39)
[2025-10-14] MEDS: PHARMACY COMMENT IV NR (10:21)
--- NOTE | 2025-10-14 12:57 | NOTE.SOAP ---
Soap Note Note for Day of Date of Exam: 10/14/25 Subjective Data Subjective Data: Patient's status post bilateral transmetatarsal amputation with TTT procedure performed on the right leg. Plan TTT procedure to the left leg tomorrow Objective Data Temperature: 98.2 F Pulse Rate: 75 Respiratory Rate: 16 Blood Pressure: 141/65 O2 Sat by Pulse Oximetry: 98 Objective Data: Both feet wrapped up without drainage. Hemoglobin 10.3, white blood cell count 10,500 Assessment Assessment: Gangrenous changes toes both feet status post bilateral transmetatarsal amputations. TTT procedure performed of the right leg. ESBL urinary tract infection Plan Plan: Continue current antibiotics. Plan for TTT procedure of the left leg tomorrow as per podiatry
[2025-10-14] MEDS: NS 250 ML IV 250 ML IV ONE (20:54)
[2025-10-15] MEDS: HIBICLENS WASH ONE (05:38)
[2025-10-15 05:43] LABS: MEAN PLATELET VOLUME 8.6 fL (7.4-11.0); RED CELL DISTRIBUTION WIDTH 18.1 % (11.6-16.5)
[2025-10-15 05:56] LABS: COR CA(FOR HYPOALB) 9.6 mg/dL (8.5-10.1); CREATININE 0.64 mg/dL (0.55-1.02); eGFR NON BLACK RACES > 60 (>60)
[2025-10-15] MEDS: HIBICLENS WASH EXT ONE (06:38)
[2025-10-15] MEDS ORDERED: K-DUR TAB 20 MEQ PO ONE (09:00)
[2025-10-15] MEDS: K-RIDER 10 MEQ/100 ML WATER 10 MEQ/100 ML BAG IV SCH (09:47)
[2025-10-15] MEDS: NS 100 ML IV 100 ML ONE (09:55)
[2025-10-15] MEDS: VERSED ONE (09:56)
[2025-10-15] MEDS: OFIRMEV IV 1000 MG VIAL 1,000 MG/100 ML VIAL IV ONE (09:56)
[2025-10-15] MEDS: DIPRIVAN VIAL 20 ML ONE (09:56)
[2025-10-15] MEDS: FENTANYL VIAL INJ 100 mcg ONE (09:56)
[2025-10-15] MEDS: D5 1/2 NS 1,000 ML 1,000 ML IV ONE (09:56)
[2025-10-15] MEDS: BRIDION ONE (09:57)
[2025-10-15] MEDS: ZEMURON 100 MG VIAL ONE (10:00)
[2025-10-15] MEDS: ROBINUL ONE (10:00)
[2025-10-15] MEDS: ANCEF VIAL 1 GRAM ONE (10:04)
[2025-10-15] MEDS: DECADRON INJ ONE (10:20)
[2025-10-15] MEDS: REGLAN INJ 10 MG VIAL ONE (10:20)
[2025-10-15] MEDS: ZOFRAN INJ 4 MG VIAL ONE (10:20)
[2025-10-15] MEDS: PEPCID 20 MG VIAL ONE (10:36)
[2025-10-15] MEDS: VERSED IVP PRN (10:45)
[2025-10-15] MEDS: PEPCID 20 MG VIAL IVP PRN (10:46)
[2025-10-15] MEDS: REGLAN INJ 10 MG VIAL IVP PRN (10:50)
[2025-10-15] MEDS: MARCAINE 0.25% INJ ONE (11:02)
[2025-10-15] MEDS: ANCEF VIAL 1 GRAM IV PRN (11:05)
[2025-10-15] MEDS: FENTANYL VIAL INJ 100 mcg IVP PRN (11:08)
[2025-10-15] MEDS ORDERED: XYLOCAINE 2 % (PLAIN) PRN (11:09)
[2025-10-15] MEDS: DIPRIVAN VIAL 100 ML IVP PRN (11:09)
[2025-10-15] MEDS: ZEMURON 100 MG VIAL IVP PRN (11:10)
[2025-10-15] MEDS: DECADRON INJ IVP PRN (11:16)
[2025-10-15] MEDS: OFIRMEV IV 1000 MG VIAL 1,000 MG/100 ML VIAL IV PRN (11:23)
[2025-10-15] MEDS ORDERED: DILAUDID INJ IVP PRN (11:57)
[2025-10-15] MEDS ORDERED: BENADRYL INJ 50 MG VIAL IVP PRN (11:57)
[2025-10-15] MEDS: KETAMINE HCL IV PRN (11:59)
[2025-10-15] MEDS: BRIDION IVP PRN (12:07)
[2025-10-15] MEDS: ROBINUL IVP PRN (12:08)
[2025-10-15] MEDS: PRECEDEX INJ VIAL IVP PRN (12:20)
[2025-10-15] MEDS: APRESOLINE INJ 20 MG VIAL IVP ONE (15:51)
--- NOTE | 2025-10-15 15:53 | EKG ---
Test Reason : hypertension protocol Blood Pressure : */* mmHG Vent. Rate : 81 BPM Atrial Rate : 81 BPM P-R Int : 126 ms QRS Dur : 92 ms QT Int : 370 ms P-R-T Axes : 19 24 45 degrees QTc Int : 429 ms Normal sinus rhythm Normal ECG When compared with ECG of 04-OCT-2025 23:37, No significant change was found Confirmed by Alejandro Gee MD ([id number]) on 10/15/2025 4:37:02 PM Referred By: Confirmed By: Alejandro Gee MD
[2025-10-15 17:41] VITALS: BMI 28.3
[2025-10-15] MEDS: DILAUDID INJ IVP ONE (17:50)
[2025-10-16 01:41] VITALS: O2SAT 95
[2025-10-16] MEDS: CONSULT PHARMACY - POTASSIUM & MAGNESIUM XX SCH (02:44)
--- NOTE | 2025-10-16 05:42 | MD.NOTE ---
Provider Note Note Note: S: Patient is doing well and states she is feeling pain in her left leg after the procedure. Has been receiving pain medication. O: Dressing changed by nurse- no concerns to pin sites. Minimal bleeding noted at pin sites, no signs of infection. A: Patient is post op from bilateral TMA's performed 10/11 and 10/13 and TTT osteotomies b/l 10/13 and 10/15 due to gangrene and PAD s/p attempted vascular intervention. Patient also has a hairline fracture noted to the left calcaneus P: - Patient can return to facility - patient is to remain strictly nonweightbearing - Patient will need to follow up with Dr. Coreas in the office in one week for post operative management - Pain medication placed in patients chart Please contact with any questions! Dr. Michell Montenegro
[2025-10-16 07:07] LABS: MEAN PLATELET VOLUME 9.2 fL (7.4-11.0); RED CELL DISTRIBUTION WIDTH 18.4 % (11.6-16.5)
[2025-10-16 07:39] LABS: COR CA(FOR HYPOALB) 9.8 mg/dL (8.5-10.1); COR NA(FOR HYPERGLY) 144 mmol/L (136-145); CREATININE 0.77 mg/dL (0.55-1.02); eGFR NON BLACK RACES > 60 (>60)
[2025-10-16 07:52] VITALS: BP 163/75; PULSE 84; TEMP 99.4
[2025-10-16 12:17] VITALS: RESP 20
--- NOTE | 2025-10-16 12:17 | NOTE.SOAP ---
Soap Note Note for Day of Date of Exam: 10/16/25 Subjective Data Subjective Data: Patient had TTT procedure performed of the left leg yesterday. Now has had bilateral transmetatarsal amputations and bilateral PTTs after bilateral lower extremity arterial interventions. Patient is doing well. Still requiring IV pain medications for pain control Objective Data Temperature: 99.4 F Pulse Rate: 84 Respiratory Rate: 20 Blood Pressure: 163/75 O2 Sat by Pulse Oximetry: 95 Objective Data: Dressings in place of both legs. External frames both tibias in place without difficulty. Pain is the biggest issue Assessment Assessment: Patient with critical ischemia of both lower extremities with gangrenous changes of the toes of both feet ultimately requiring bilateral transmetatarsal amputations after arterial invention both legs. Poor response on the right side in regards to arterial outflopw . Bilateral TTT's. We will see how her legs do . Plan Plan: Will plan to discharge back to skilled nurse facility soon and follow her wounds
[2025-10-16] MEDS: DILAUDID INJ IVP PRN (13:47)
--- NOTE | 2025-10-16 18:29 | W.DIS.FURT ---
Summary of Discharge Discharge Summary of Date Date of Exam: 10/16/25 Admission Date Date of Admission: 10/04/25 Admission Diagnosis Hospital Course: This is a 54-year-old female history of a left hemispheric stroke whose had changes of ischemia both feet when I saw her in July. She had a CT angiogram showing bilateral common iliac stenosis noted to be severe, occluded right tibioperoneal trunk with reconstitution and single-vessel runoff via the posterior tibial on the right foot and severe left femoral-popliteal disease with patent posterior tibial artery going to the left foot. We had trouble getting her approved with her insurance carrier and the day of admission, October 04 we had gotten permission and saw her in the office but she had such significant changes of the feet with gangrenous changes of the small and great toes bilaterally. 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 She was admitted on October 042024 and on the next day 10/05/2025 underwent atherectomy and angioplasty left posterior tibial artery, angioplasty left anterior tibial artery and angioplasty of the left common femoral artery and stenting of the left common iliac artery. On the next day October 06, 2025 she underwent arteriogram the right leg showing all proximal vessels to be without significant stenosis but all trifurcation vessels appear to be occluded. She was maintained on IV antibiotics and was seen by the Podiatry service and underwent right transmetatarsal amputation on October 11. On October 14 she underwent left transmetatarsal amputation with right sided transtibial transfer with placement of external fixator and on October 15 underwent transtibial transfer osteotomy of the left leg with placement of external fixator. It was noted that during her hospitalization she had a urine culture which showed E. coli greater 100,000 organisms per cc which showed to be ESBL. Patient was changed to IV Invanz underwent treatment of at least a week with IV Invanz and now that has been discontinued. Her Santoro has been discontinued and she will be just [facility] the [facility]. She will continue usual home medications plus Plavix mg twice daily and aspirin 81 mg po daily. She will follow-up with me in 1 week Vital Signs: Vital Signs (72 hours) 10/13/25 19:00 10/13/25 19:00 10/13/25 20:00 Temperature 98.9 F 99.1 F Pulse Rate 91 H 83 Pulse Rate [Radial] Respiratory Rate 18 20 Blood Pressure 139/65 149/71 Blood Pressure [Right Arm] O2 Sat by Pulse Oximetry 97 100 Oxygen Delivery Method Nasal Cannula Nasal Cannula Nasal Cannula Oxygen Flow Rate 2 2 2 FIO2% 10/13/25 20:08 10/13/25 20:22 10/13/25 21:22 Temperature 99.1 F Pulse Rate 83 Pulse Rate [Radial] Respiratory Rate 20 20 20 Blood Pressure 149/71 Blood Pressure [Right Arm] O2 Sat by Pulse Oximetry 100 Oxygen Delivery Method Oxygen Flow Rate FIO2% 10/13/25 22:35 10/13/25 22:50 10/13/25 23:20 Temperature Pulse Rate Pulse Rate [Radial] Respiratory Rate 20 18 Blood Pressure Blood Pressure [Right Arm] O2 Sat by Pulse Oximetry Oxygen Delivery Method Nasal Cannula Oxygen Flow Rate 2 FIO2% 28 10/14/25 00:00 10/14/25 00:41 10/14/25 01:11 Temperature 98.4 F Pulse Rate 78 Pulse Rate [Radial] Respiratory Rate 20 20 18 Blood Pressure 158/76 Blood Pressure [Right Arm] O2 Sat by Pulse Oximetry 95 Oxygen Delivery Method Nasal Cannula Oxygen Flow Rate 2 FIO2% 10/14/25 02:16 10/14/25 03:16 10/14/25 04:00 Temperature 98.2 F Pulse Rate 74 Pulse Rate [Radial] Respiratory Rate 20 22 16 Blood Pressure 142/70 Blood Pressure [Right Arm] O2 Sat by Pulse Oximetry 100 Oxygen Delivery Method Nasal Cannula Oxygen Flow Rate 2 FIO2% 10/14/25 07:00 10/14/25 07:48 10/14/25 07:58 Temperature 97.9 F Pulse Rate 65 Pulse Rate [Radial] Respiratory Rate 16 17 Blood Pressure 155/71 Blood Pressure [Right Arm] O2 Sat by Pulse Oximetry 99 Oxygen Delivery Method Nasal Cannula Room Air Oxygen Flow Rate 2 FIO2% 10/14/25 08:28 10/14/25 08:45 10/14/25 09:39 Temperature Pulse Rate Pulse Rate [Radial] Respiratory Rate 18 16 Blood Pressure Blood Pressure [Right Arm] O2 Sat by Pulse Oximetry Oxygen Delivery Method Nasal Cannula Oxygen Flow Rate 2 FIO2% 28 10/14/25 09:45 10/14/25 10:39 10/14/25 11:36 Temperature 98.2 F Pulse Rate 75 Pulse Rate [Radial] Respiratory Rate 18 16 Blood Pressure 141/65 Blood Pressure [Right Arm] O2 Sat by Pulse Oximetry 98 Oxygen Delivery Method Room Air Room Air Oxygen Flow Rate FIO2% 10/14/25 12:57 10/14/25 15:33 10/14/25 16:00 Temperature 98.2 F 98.0 F Pulse Rate 75 78 Pulse Rate [Radial] Respiratory Rate 16 17 16 Blood Pressure 141/65 130/61 Blood Pressure [Right Arm] O2 Sat by Pulse Oximetry 98 96 Oxygen Delivery Method Room Air Oxygen Flow Rate FIO2% 10/14/25 16:33 10/14/25 19:00 10/14/25 20:00 Temperature 98.1 F Pulse Rate 86 Pulse Rate [Radial] Respiratory Rate 18 17 Blood Pressure 133/61 Blood Pressure [Right Arm] O2 Sat by Pulse Oximetry 95 Oxygen Delivery Method Nasal Cannula Room Air Oxygen Flow Rate 2 FIO2% 10/14/25 20:05 10/14/25 21:12 10/14/25 22:12 Temperature Pulse Rate Pulse Rate [Radial] Respiratory Rate 20 20 Blood Pressure Blood Pressure [Right Arm] O2 Sat by Pulse Oximetry Oxygen Delivery Method Room Air Oxygen Flow Rate FIO2% 10/15/25 00:00 10/15/25 04:00 10/15/25 08:32 Temperature 98.4 F 98.1 F Pulse Rate Pulse Rate [Radial] 86 81 Respiratory Rate 17 16 16 Blood Pressure Blood Pressure [Right Arm] 158/72 140/65 O2 Sat by Pulse Oximetry 94 L 94 L Oxygen Delivery Method Oxygen Flow Rate FIO2% 10/15/25 08:38 10/15/25 10:07 10/15/25 12:27 Temperature 97.2 F L 97.8 F 97.2 F L Pulse Rate 73 80 Pulse Rate [Radial] 75 Respiratory Rate 19 18 16 Blood Pressure 119/80 131/64 Blood Pressure [Right Arm] 158/67 O2 Sat by Pulse Oximetry 97 96 100 Oxygen Delivery Method Room Air Room Air Aerosol Face Tent Oxygen Flow Rate FIO2% 10/15/25 12:32 10/15/25 12:37 10/15/25 12:42 Temperature Pulse Rate 79 79 79 Pulse Rate [Radial] Respiratory Rate 16 18 18 Blood Pressure 143/70 152/74 162/74 Blood Pressure [Right Arm] O2 Sat by Pulse Oximetry 100 100 100 Oxygen Delivery Method Aerosol Face Tent Aerosol Face Tent Nasal Cannula Oxygen Flow Rate FIO2% 10/15/25 12:47 10/15/25 12:52 10/15/25 12:57 Temperature Pulse Rate 79 80 80 Pulse Rate [Radial] Respiratory Rate 18 18 18 Blood Pressure 162/71 155/66 154/71 Blood Pressure [Right Arm] O2 Sat by Pulse Oximetry 100 100 98 Oxygen Delivery Method Nasal Cannula Nasal Cannula Room Air Oxygen Flow Rate FIO2% 10/15/25 13:05 10/15/25 13:20 10/15/25 13:35 Temperature 98.6 F 98.2 F 98.2 F Pulse Rate Pulse Rate [Radial] 81 79 75 Respiratory Rate 18 18 18 Blood Pressure Blood Pressure [Right Arm] 166/77 162/77 182/85 O2 Sat by Pulse Oximetry 99 100 98 Oxygen Delivery Method Nasal Cannula Nasal Cannula Nasal Cannula Oxygen Flow Rate 2 2 2 FIO2% 10/15/25 13:50 10/15/25 14:05 10/15/25 14:15 Temperature 98.2 F 98.2 F Pulse Rate Pulse Rate [Radial] 79 76 Respiratory Rate 18 18 Blood Pressure Blood Pressure [Right Arm] 172/84 172/80 135/90 O2 Sat by Pulse Oximetry 99 100 Oxygen Delivery Method Nasal Cannula Nasal Cannula Oxygen Flow Rate 2 2 FIO2% 10/15/25 15:05 10/15/25 15:20 10/15/25 16:05 Temperature 98.1 F 98.6 F Pulse Rate Pulse Rate [Radial] 77 93 H Respiratory Rate 19 18 Blood Pressure Blood Pressure [Right Arm] 184/87 182/86 132/61 O2 Sat by Pulse Oximetry 99 97 Oxygen Delivery Method Nasal Cannula Nasal Cannula Oxygen Flow Rate 2 2 FIO2% 10/15/25 16:36 10/15/25 17:05 10/15/25 17:36 Temperature 98.4 F Pulse Rate Pulse Rate [Radial] 90 Respiratory Rate 18 18 18 Blood Pressure Blood Pressure [Right Arm] 113/61 O2 Sat by Pulse Oximetry 99 Oxygen Delivery Method Nasal Cannula Oxygen Flow Rate 2 FIO2% 10/15/25 17:50 10/15/25 18:05 10/15/25 19:00 Temperature 98.7 F Pulse Rate Pulse Rate [Radial] 92 H Respiratory Rate 18 19 Blood Pressure Blood Pressure [Right Arm] 140/63 O2 Sat by Pulse Oximetry 95 Oxygen Delivery Method Room Air Nasal Cannula Oxygen Flow Rate 2 FIO2% 10/15/25 20:00 10/15/25 23:03 10/16/25 00:00 Temperature 98.4 F 98.4 F Pulse Rate Pulse Rate [Radial] 77 83 Respiratory Rate 18 17 18 Blood Pressure Blood Pressure [Right Arm] 148/67 138/76 O2 Sat by Pulse Oximetry 94 L 95 Oxygen Delivery Method Room Air Room Air Oxygen Flow Rate FIO2% 10/16/25 00:03 10/16/25 04:00 10/16/25 07:52 Temperature 98.0 F 99.4 F Pulse Rate Pulse Rate [Radial] 82 84 Respiratory Rate 18 18 20 Blood Pressure Blood Pressure [Right Arm] 148/82 163/75 O2 Sat by Pulse Oximetry 95 95 Oxygen Delivery Method Room Air Room Air Oxygen Flow Rate FIO2% 10/16/25 08:15 10/16/25 09:15 10/16/25 11:02 Temperature Pulse Rate Pulse Rate [Radial] Respiratory Rate 18 18 Blood Pressure Blood Pressure [Right Arm] O2 Sat by Pulse Oximetry Oxygen Delivery Method Nasal Cannula Oxygen Flow Rate 2 FIO2% 10/16/25 12:16 10/16/25 13:47 Temperature 99.4 F Pulse Rate 84 Pulse Rate [Radial] Respiratory Rate 20 20 Blood Pressure 163/75 Blood Pressure [Right Arm] O2 Sat by Pulse Oximetry 95 Oxygen Delivery Method Oxygen Flow Rate FIO2% Labs: Laboratory Last Values WBC 9.3 X10^3/uL (3.6-10.0) 10/16/25 05:52 RBC 3.23 X10^6/uL (3.5-5.4) L 10/16/25 05:52 Hgb 8.6 g/dL (12.0-16.0) L 10/16/25 05:52 Hct 25.8 % (36.0-47.0) L 10/16/25 05:52 MCV 79.9 fL (80.0-100.0) L 10/16/25 05:52 MCH 26.7 pg (27.0-34.0) L 10/16/25 05:52 MCHC 33.5 g/dL (33.0-35.0) 10/16/25 05:52 RDW 18.4 % (11.6-16.5) H 10/16/25 05:52 Plt Count 244 X10^3/uL (150.0-450.0) 10/16/25 05:52 Plt Count Comment Adequate (ADEQUATE) 10/06/25 05:13 MPV 9.2 fL (7.4-11.0) 10/16/25 05:52 Neut % (Auto) 72.1 % (42.0-75.0) 10/16/25 05:52 Lymph % (Auto) 16.8 % (21.0-51.0) L 10/16/25 05:52 [place] % (Auto) 10.4 % (0.0-13.0) 10/16/25 05:52 Eos % (Auto) 0.4 % (0.9-2.9) L 10/16/25 05:52 Baso % (Auto) 0.3 % (0.2-1.0) 10/16/25 05:52 Neut # (Auto) 6.7 x10^3/uL (2.2-4.8) H 10/16/25 05:52 Lymph # (Auto) 1.6 X10^3/uL (1.3-2.9) 10/16/25 05:52 [place] # (Auto) 1.0 x10^3/uL (0.3-0.8) H 10/16/25 05:52 Eos # (Auto) 0.0 x10^3/uL (0.0-0.2) 10/16/25 05:52 Baso # (Auto) 0.0 X10^3/uL (0.0-0.1) 10/16/25 05:52 Absolute Nucleated RBC 0.1 /100WBC 10/16/25 05:52 Total Counted 100 10/06/25 05:13 Neutrophils % (Manual) 83 % (39-76) H 10/06/25 05:13 Lymphocytes % (Manual) 17 % (13-43) 10/06/25 05:13 Plt Morphology Comment Normal (NORMAL) 10/06/25 05:13 RBC Morphology Normal (NORMAL) 10/06/25 05:13 ESR 53 MM/HOUR (0-20) H 10/06/25 05:13 Sodium 140 mmol/L (136-145) 10/16/25 05:52 Corrected Sodium 144 mmol/L (136-145) 10/16/25 05:52 Potassium 3.7 mmol/L (3.5-5.1) 10/16/25 05:52 Chloride 103 mmol/L (98-107) 10/16/25 05:52 Carbon Dioxide 29.8 mmol/L (21-32) 10/16/25 05:52 BUN 15 mg/dL (7-18) 10/16/25 05:52 Creatinine 0.77 mg/dL (0.55-1.02) 10/16/25 05:52 Est GFR (MDRD) Af Amer > 60 (>60) 10/16/25 05:52 Est GFR (MDRD) Non-Af > 60 (>60) 10/16/25 05:52 Glucose 247 mg/dL (65-99) H 10/16/25 05:52 POC Glucose (mg/dL) 171 mg/dL (65-99) H 10/16/25 12:28 Hemoglobin A1c 8.6 % 10/06/25 05:13 Calcium 8.2 mg/dL (8.5-10.1) L 10/16/25 05:52 Corrected Calcium 9.8 mg/dL (8.5-10.1) 10/16/25 05:52 Magnesium 1.7 mg/dL (2.0-2.9) L 10/16/25 05:52 Total Bilirubin 0.20 mg/dL (0.2-1.0) 10/16/25 05:52 AST 20 Units/L (15-37) 10/16/25 05:52 ALT 30 Units/L (12-78) 10/16/25 05:52 Alkaline Phosphatase 141 Units/L (46-116) H 10/16/25 05:52 C-Reactive Protein 40.10 mg/L (0-3.0) H 10/06/25 05:13 Total Protein 5.9 g/dL (6.4-8.2) L 10/16/25 05:52 Albumin 2.0 g/dL (3.4-5.0) L 10/16/25 05:52 Globulin 3.9 g/dL (2.5-4.5) 10/16/25 05:52 Albumin/Globulin Ratio 0.5 Ratio (1.1-2.1) L 10/16/25 05:52 Specimen Type Catherized urine 10/05/25 08:15 Urine Color Yellow (YELLOW) 10/05/25 08:15 Urine Appearance Hazy (CLEAR) 10/05/25 08:15 Urine pH 8.0 (5.0 - 8.0) 10/05/25 08:15 Ur Specific [place] 1.015 (1.000-1.030) 10/05/25 08:15 Urine Protein Negative (NEGATIVE) 10/05/25 08:15 Urine Glucose (UA) Negative (NEGATIVE) 10/05/25 08:15 Urine Ketones Negative (NEGATIVE) 10/05/25 08:15 Urine Blood Negative (NEGATIVE) 10/05/25 08:15 Urine Nitrite Positive (NEGATIVE) 10/05/25 08:15 Urine Bilirubin Negative (NEGATIVE) 10/05/25 08:15 Urine Urobilinogen Normal (NORMAL) 10/05/25 08:15 Ur Leukocyte Esterase 2+ (NEGATIVE) 10/05/25 08:15 Urine RBC None seen /HPF (0-3) 10/05/25 08:15 Urine WBC 10-20 /HPF (0-5) A 10/05/25 08:15 Ur Squamous Epith Cells Negative /HPF (NEGATIVE) 10/05/25 08:15 Urine Bacteria 3+ /HPF (NEGATIVE) 10/05/25 08:15 Ur Culture Indicated? Yes/culture set up 10/05/25 08:15 Vancomycin Trough 16.6 ug/mL (15-20) 10/13/25 20:30 Tissue Pathology See comment. 10/11/25 08:12 Blood Type O POSITIVE 10/12/25 17:34 Antibody Screen Negative 10/12/25 17:34 Crossmatch See Detail 10/12/25 17:34 Reason For Visit: BILATERAL ISCHEMIA TO LOWER EXT'S Discharge Diagnosis All Active Problems (Updated 10/05/25 @ 10:51 by Michell Montenegro) Gangrene of both feet (Acute) Stricture of artery (Acute) Hyperlipidemia, unspecified (Acute) Dysphagia following cerebral infarction (Acute) Arterial ischemic stroke, ICA (internal carotid artery), right, chroni (Acute) Essential (primary) hypertension (Acute) Type 2 diabetes mellitus without complications (Acute) Atherosclerosis of [place] arteries of extremities with rest pain, right leg (Acute) Atherosclerosis of [place] arteries of extremities with rest pain, left leg (Acute) Plan of Treatment: Continue with present treatment and follow up plan. Pt is to keep follow up appointment as instructed and take medications as ordered. Discharge Medications Discharge Medications: amoxicillin Allergy (Verified 10/05/25 00:10) codeine Allergy (Verified 10/04/25 19:14) nicardipine Allergy (Verified 10/04/25 19:14) ondansetron (From Zofran) Allergy (Verified 10/05/25 00:10) RASH Penicillins Allergy (Verified 10/04/25 19:14) CONTINUE taking the following medications aluminum-mag hydroxide-simethicone 400 mg-400 mg-40 mg/5 mL oral susp (Nery- Lanta) 30 ml PO Q8H PRN 10/04/25 [History] aspirin 81 mg chewable tablet 81 mg PO QDAY 10/04/25 [History] atorvastatin 80 mg tablet 80 mg PO DAILY 10/04/25 [History] carvedilol 25 mg tablet (Coreg) 25 mg PO BID 10/04/25 [History] clopidogrel 75 mg tablet (Plavix) 75 mg PO QDAY 10/04/25 [History] ergocalciferol (vitamin D2) 50,000 unit tablet 50,000 unit PO WEEKLY 10/04/25 [History] famotidine 40 mg tablet 40 mg PO DAILY 10/04/25 [History] ferrous sulfate 325 mg (65 mg iron) tablet,delayed release 325 mg PO DAILY 10/04/25 [History] gabapentin 100 mg capsule 100 mg PO BID 10/04/25 [History] insulin glargine 100 unit/mL (3 mL) subcutaneous pen (Lantus Solostar U-100 Insulin) 12 unit subcut BID 10/04/25 [History] insulin regular human 100 unit/mL injection solution (Humulin R Regular U-100 Insulin) See Rx Instructions .Route .COMPLEX 10/04/25 [History] losartan 100 mg tablet 100 mg PO DAILY 10/04/25 [History] oxycodone-acetaminophen 5 mg-325 mg tablet 1 tab PO Q6H PRN 10/04/25 [History] pantoprazole 40 mg granules delayed-release for susp in packet 40 mg PO DAILY 10/04/25 [History] promethazine 25 mg tablet 25 mg PO Q8H PRN 10/04/25 [History] sennosides 8.6 mg-docusate sodium 50 mg tablet 1 tab PO BID PRN 10/04/25 [History] sertraline 50 mg tablet 50 mg PO DAILY 10/04/25 [History] ipratropium 0.5 mg-albuterol 3 mg (2.5 mg base)/3 mL nebulization soln 3 ml inhalation Q4H PRN rhonchi/adventitious lung sounds 10/05/25 [History] New Prescriptions oxycodone-acetaminophen 10 mg-325 mg tablet (Percocet) 1 tab PO Q4H PRN #30 tabs 10/16/25 [Rx] Discharge Disposition Assessment: see hospital course Discharge Plan Discharge Plan Hospital Course: This is a 54-year-old female history of a left hemispheric stroke whose had changes of ischemia both feet when I saw her in July. She had a CT angiogram showing bilateral common iliac stenosis noted to be severe, occluded right tibioperoneal trunk with reconstitution and single-vessel runoff via the posterior tibial on the right foot and severe left femoral-popliteal disease with patent posterior tibial artery going to the left foot. We had trouble getting her approved with her insurance carrier and the day of admission, October 04 we had gotten permission and saw her in the office but she had such significant changes of the feet with gangrenous changes of the small and great toes bilaterally. 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 She was admitted on October 042024 and on the next day 10/05/2025 underwent atherectomy and angioplasty left posterior tibial artery, angioplasty left anterior tibial artery and angioplasty of the left common femoral artery and stenting of the left common iliac artery. On the next day October 06, 2025 she underwent arteriogram the right leg showing all proximal vessels to be without significant stenosis but all trifurcation vessels appear to be occluded. She was maintained on IV antibiotics and was seen by the Podiatry service and underwent right transmetatarsal amputation on October 11. On October 14 she underwent left transmetatarsal amputation with right sided transtibial transfer with placement of external fixator and on October 15 underwent transtibial transfer osteotomy of the left leg with placement of external fixator. It was n oted that during her hospitalization she had a urine culture which showed E. coli greater 100,000 organisms per cc which showed to be ESBL. Patient was changed to IV Invanz underwent treatment of at least a week with IV Invanz and now that has been discontinued. Her [place] has been discontinued and she will be just transferred [facility] to the [facility]. She will continue usual home medications plus Plavix mg twice daily and aspirin 81 mg po daily. She will follow-up with me in 1 week Patient Disposition: SNF Condition: Stable Health Concerns: Post Hospitalization: new medications and changes needed to prevent readmission or further decline. Pt educated and given instructions on all concerns. Care Plan Goals: Problem: Pain/Alteration in Comfort Goal: Improve/ Resolve Pain; Achieve Pain Tolerance Instructions: Take pain medications as prescribed. Contact your primary care provider if your pain is unrelieved or worsens. Follow up with primary care provider as directed. Plan of Treatment: Continue with present treatment and follow up plan. Pt is to keep follow up appointment as instructed and take medications as ordered. Assessment: see hospital course Prescription drug monitoring program results: PDMP was not reviewed Prescriptions: New oxycodone-acetaminophen [Percocet] 10-325 mg Tablet 1 tab PO Q4H MDD 6 PRNQty: 30 0RF No Action clopidogrel [Plavix] 75 mg Tablet 75 mg PO QDAY aspirin 81 mg Tablet,Chewable 81 mg PO QDAY sertraline 50 mg Tablet 50 mg PO DAILY famotidine 40 mg Tablet 40 mg PO DAILY sennosides-docusate sodium 8.6-50 mg Tablet 1 tab PO BID PRN oxycodone-acetaminophen 5-325 mg Tablet 1 tab PO Q6H PRN Humulin R Regular U-100 Insuln 100 unit/mL Solution See Rx Instructions .ROUTE .COMPLEX Rx Instructions: inject as per sliding scale. 0-200=0 less than 70 call provider. 201-250=2. 251-300=4. 301-350=6. 351-400=8. 401+=10. 401+ administer 10 units and call provider. promethazine 25 mg Tablet 25 mg PO Q8H PRN gabapentin 100 mg Capsule 100 mg PO BID ferrous sulfate 325 mg (65 mg iron) Tablet,Delayed Release (Dr/Ec) 325 mg PO DAILY losartan 100 mg Tablet 100 mg PO DAILY alum-mag hydroxide-simeth [Nery-Lanta] 400-400-40 mg/5 mL Suspension 30 ml PO Q8H PRN insulin glargine [Lantus Solostar U-100 Insulin] 100 unit/mL (3 mL) Insulin Pen 12 unit SUBCUT BID pantoprazole [address] For Susp In Packet 40 mg PO DAILY Rx Instructions: 1/2-1 hour before morning meal mixed with apple juice of applesauce atorvastatin 80 mg Tablet 80 mg PO DAILY carvedilol [Coreg] 25 mg Tablet 25 mg PO BID ergocalciferol (vitamin D2) 50,000 unit Tablet 50,000 unit PO WEEKLY ipratropium-albuterol 0.5 mg-3 mg(2.5 mg base)/3 mL Solution For Nebulization 3 ml INHALATION Q4H PRN (Reason: rhonchi/adventitious lung sounds) Orders to Discharge Patient Discharge Orders: Discharge (Routine); Ordered 10/16/25 Ordered By: Derik Boo Follow ups/Referrals Follow ups/Referrals: Derik Boo [Primary Care Provider, Unknown] - 1 WEEK Instructions Instructions: Endovascular Therapy for Peripheral Vascular Disease: What to Know After Stand Alone Forms: Excuse From Work, Post Hospital Follow Up Care Print Language: THAI
== END 2025-10-16 15:30 | DRG 271 ==
LOC: ICU → OBSVTOIN 16:29 → MED/SURG 10-07 11:38
PROVIDERS: ADMIT Surgery; ATTEND Surgery
PROC: APEXFIX (2025-10-13 12:15)
PROC: [UNRECOGNIZED PROCEDURE] (2025-10-15 11:30)
DX: D64.89 Other specified anemias; Z79.4 Long term (current) use of insulin; R79.82 Elevated C-reactive protein (CRP); N39.0 Urinary tract infection, site not specified; I77.1 Stricture of artery; S92.002A Unspecified fracture of left calcaneus, initial encounter for closed fracture; M21.272 Flexion deformity, left ankle and toes; B96.89 Other specified bacterial agents as the cause of diseases classified elsewhere; Z16.12 Extended spectrum beta lactamase (ESBL) resistance; E11.65 Type 2 diabetes mellitus with hyperglycemia; I87.2 Venous insufficiency (chronic) (peripheral); S91.302A Unspecified open wound, left foot, initial encounter; R26.89 Other abnormalities of gait and mobility; E83.42 Hypomagnesemia; I69.391 Dysphagia following cerebral infarction; I96 Gangrene, not elsewhere classified; B96.29 Other Escherichia coli [E. coli] as the cause of diseases classified elsewhere; R70.0 Elevated erythrocyte sedimentation rate; X58.XXXA Exposure to other specified factors, initial encounter; K21.9 Gastro-esophageal reflux disease without esophagitis; M24.571 Contracture, right ankle; Z01.810 Encounter for preprocedural cardiovascular examination; Z16.23 Resistance to quinolones and fluoroquinolones; Z16.29 Resistance to other single specified antibiotic; E83.51 Hypocalcemia; E78.5 Hyperlipidemia, unspecified; M20.5X1 Other deformities of toe(s) (acquired), right foot; I10 Essential (primary) hypertension; M24.572 Contracture, left ankle; I70.223 Atherosclerosis of native arteries of extremities with rest pain, bilateral legs; M21.171 Varus deformity, not elsewhere classified, right ankle